=== PATIENT | female | born 1995 | race Caucasian/White ===

== ENCOUNTER 2017-08-24 14:03 | Emergency (ER) | payer OTHER ==
[2017-08-24 16:14] VITALS: BP 128/80
--- NOTE | 2017-08-24 16:29 | ED ---
Adult Trauma - HPI Summary HPI Summary: 22 yr old female with the complaint of neck pain, head injury. The patient was skiing at [employer] on Thursday - History of Current Complaint Chief Complaint: UCHeadInjury Stated Complaint: HEAD INJURY Time Seen by Provider: 08/24/17 16:01 Hx Last Menstrual Period: 08/03/17 Pain Intensity: 7 - Allergy/Home Medications Allergies/Adverse Reactions: Allergies Allergy/AdvReac Type Severity Reaction Status Date / Time No Known Allergies Allergy Verified 08/24/17 15:55 Home Medications: Home Medications Ibuprofen TAB* [Advil TAB*] 400 mg PO Q6H PRN 08/24/17 [History Confirmed ] PMH/Surg Hx/FS Hx/Imm Hx - Surgical History Hx Anesthesia Reactions: No Infectious Disease History: No Infectious Disease History: Denies: Hx Clostridium Difficile, Hx Hepatitis, Hx Human Immunodeficiency Virus (HIV), Hx of Known/Suspected MRSA, Hx Shingles, Hx Tuberculosis, Hx Known/ Suspected VRE, Hx Known/Suspected VRSA, History Other Infectious Disease, Traveled Outside the in Last 30 Days - Family History Known Family History: Positive: None - Social History Occupation: Student Lives: Dormitory/Roommates Alcohol Use: None Substance Use Type: Reports: None Smoking Status (MU): Never Smoked Tobacco Review of Systems Constitutional: Negative Positive: Photophobia - mild Respiratory: Negative Positive: Nausea Positive: Other - neck pain Positive: Headache. Negative: Weakness, Paresthesia, Numbness, Syncope, Slurred Speech All Other Systems Reviewed And Are Negative: Yes Physical Exam - Summary Physical Exam Summary: 22 yr old female with the complaint of photophobia, nausea and mild headache after hitting head on snow while skiing two days ago. No LOC, no blurred vision , no weakness or numbness in arms or legs, no trouble walking. No bowel or bladder incontinence. She states she has felt a little dizzy today and some concentration difficulty. No clear fluid from nose or ears. She is a student at [employer]. Triage Information Reviewed: Yes Vital Signs On Initial Exam: Initial Vitals Temp Pulse Resp BP Pulse Ox 98.2 F 83 18 128/80 100 08/24/17 15:56 08/24/17 15:56 08/24/17 15:56 08/24/17 15:56 08/24/17 15:56 Vital Signs Reviewed: Yes Appearance: Positive: Well-Appearing, No Pain Distress Skin: Positive: Warm Eyes: Positive: EOMI ENT: Positive: Normal ENT inspection Neck: Positive: Tenderness @ - over left paraspinal neck area, and anteriorly over cricoid area. No STS. Respiratory/Lung Sounds: Positive: Clear to Auscultation, Breath Sounds Present Cardiovascular: Positive: RRR. Negative: Murmur Musculoskeletal: Positive: Normal, Strength/ROM Intact Neurological: Positive: Sensory/Motor Intact, Alert, Oriented to Person Place, Time, CN Intact II-III, Normal Gait, Speech Normal, Other - Serial 7s are done very well by this patient counting back from 100.. Negative: Disoriented - Sabrina Coma Scale Best Eye Response: 4 - Spontaneous Best Motor Response: 6 - Obeys Commands Best Verbal Response: 5 - Oriented - GCS 15 Coma Scale Total: 15 Diagnostics - Vital Signs Vital Signs Temp Pulse Resp BP Pulse Ox 08/24/17 15:56 98.2 F 83 18 128/80 100 - Laboratory Lab Statement: Any lab studies that have been ordered have been reviewed, and results considered in the medical decision making process. - Radiology cervical spine xray Xray Interpretation: No Acute Changes Radiology Interpretation Completed By: Radiologist - final report reviewed by radiology. Adult Trauma Course/Dx - Course Course Of Treatment: 22 yr old female with neck pain, and concussion after falling on snow. She does not require a CT brain, and risk from radiation not warranted in this case. I will do xrays of her neck since she has pain. - Diagnoses Provider Diagnoses: Concussion, Cervical strain Discharge - Discharge Plan Condition: Good Disposition: HOME Patient Education Materials: Cervical Strain (ED), Concussion (ED), Head Injury in Children (ED) Referrals: Non Staff,Doctor [Primary Care Provider] - [facility] [Outside] Additional Instructions: [facility] Contact Information [facility] (P) Map & directions [address] [place] [address] , [place] [address] Insurance Info: Insurance Info Office Hours: Mon.-Fri. 9am-4pm
--- NOTE | 2017-08-24 16:44 | RAD ---
HISTORY: Fall, injury COMPARISONS: None VIEWS: 1, single lateral view of the cerebral spine FINDINGS: The cervical spine is visualized from the skull base through C7-T1. ALIGNMENT: There is straightening of the normal cervical lordosis. VERTEBRAL BODIES: The vertebral bodies are preserved in height. JOINTS: There is no subluxation or dislocation. The facet joints are unremarkable. INTERVERTEBRAL DISCS: The intervertebral disc heights are normal. SOFT TISSUE: The prevertebral soft tissues are normal. OTHER: The skull base is normal IMPRESSION: LIMITED SINGLE LATERAL PROJECTION OF THE CERVICAL SPINE. STRAIGHTENING THE CERVICAL LORDOSIS.
--- NOTE | 2017-08-24 17:12 | RAD ---
HISTORY: Neck pain after fall COMPARISONS: None relevant VIEWS: 5, Frontal, lateral, open-mouth odontoid, and bilateral oblique views of the cervical spine. FINDINGS: The cervical spine is visualized from the skull base through C7-T1. ALIGNMENT: There is straightening of the normal cervical lordosis. VERTEBRAL BODIES: The odontoid process is intact. The atlantoaxial intervals are symmetric. JOINTS: There is no subluxation or dislocation. The facet joints are unremarkable. There is no osseous neural foraminal narrowing on the oblique views. INTERVERTEBRAL DISCS: The intervertebral disc heights are normal. SOFT TISSUE: The prevertebral soft tissues are normal. OTHER: The skull base is normal. The lung apices are clear. IMPRESSION: STRAIGHTENING OF THE CERVICAL LORDOSIS.
== END 2017-08-24 17:37 | disposition home or self-care (01) ==
LOC: UCCORT 14:03
DX: S06.0X9A Concussion with loss of consciousness of unspecified duration, initial encounter (principal); W00.0XXA Fall on same level due to ice and snow, initial encounter; Y93.24 Activity, cross country skiing; Y92.838 Other recreation area as the place of occurrence of the external cause
CPT/HCPCS: 72020; 72050; 99212; G0463